=== PATIENT | female | born 1930 | race Caucasian/White ===

== ENCOUNTER 2017-11-11 09:53 | Observation (INO) | payer MEDICARE, BC ==
[~2017-11-11] VITALS: Ht 172.7 cm; Wt 72.0 kg
[~2017-11-11 09:53] MED LIST: ASPIRIN LOW DOS81 M2 PO; ATENOLOL25 MG PO; BETIMOL0.25 % OU; CALCIUM + D600 MG PO; CALCIUM D- OR; CENTRUM PO; CO Q 10100 MG PO; DORZOL/TIMOL1 ML OU; DORZOLAMIDE2 % OU; GLUCO/CHOND2 PO; GLUCOSAMINE500 M1 PO; HYDROCHLOROT25 MG PO; HYDROXYZ HCL25 MG PO; LIPITOR40 MG PO; LOSARTAN POTASS25 MG PO; MAGNESIUM-OX400 MG PO; METOPROL TAR25 MG PO; NAPROSYN500 MG PO; NITROSTAT0.4 MG SL; OMEGA 31000 MG PO; OMEGA-3 FISH1000 MG PO; PEPCID20 MG PO; PLAVIX75 MG PO; POT CHLORIDE 10% PO; PREDNISONE10 MG PO; PROTONIX40 M2 OR; PROTONIX40 M2 PO; TRANSDERM-N0.2 MG/HR TD; TRANSDERM-NITR0.4 MG TD; ULTRAM50 MG OR; [UNRECOGNIZED DRUG - CODE] PO
[2017-11-11 10:33] LABS: HEMATOCRIT 38.9 % (37.0-47.0); HEMOGLOBIN 12.9 g/dl (12.0-16.0); IMMATURE GRANULOCYTES 0.6 % (0.0-1.0); MEAN CELL VOLUME 86.1 fL CALC (80.0-100.0); MEAN CORPUSCULAR HGB 28.5 pG CALC (26.0-32.0); MEAN CORPUSCULAR HGB CONC 33.2 g/L CALC (32.0-36.0); NEUT# 2.89 thou/uL (2.00-7.15); RED BLOOD COUNT 4.52 mill/uL (4.20-5.60); RED CELL DISTRI WIDTH 13.4 % (11.5-15.5)
[2017-11-11 10:56] LABS: ALBUMIN 4.1 g/dL (3.2-5.0); ALKALINE PHOSPHATASE 86 u/l (38-126); ANION GAP 16 (6-22 (CALC)); BILIRUBIN, TOTAL 0.9 mg/dL (0.0-1.4); BUN 27 mg/dL (8-23); BUN/CREATININE RATIO 20 (12-20 (CALC)); CARBON DIOXIDE 29 mmol/l (22-30); CHLORIDE 101 mmol/l (95-108); CREATININE 1.3 mg/dL (0.5-1.0); GFR 39 ML/MIN (>=60 (CALC)); GFR FOR AFR.AMER. 47 ML/MIN (>=60 (CALC)); POTASSIUM 4.1 mmol/l (3.5-5.1); SGOT/AST 31 u/l (9-36); SGPT/ALT 30 u/l (11-66); SODIUM 142 mmol/l (137-146); TOTAL PROTEIN 6.9 g/dL (6.3-8.2)
[2017-11-11] MEDS ORDERED: BENAZEPRIL10 MG PO (12:06)
[2017-11-11] MEDS ORDERED: CARVEDILOL6.25 MG PO (12:06)
[2017-11-11] MEDS ORDERED: FUROSEMIDE40 MG PO (12:07)
[2017-11-11] MEDS ORDERED: MICRO-K10 ME1 PO (12:07)
[2017-11-11] MEDS ORDERED: PROBIOTI2 PO (12:08)
[2017-11-11] MEDS ORDERED: ECONOPRED PL1 % OS (12:09)
[2017-11-11 14:50] VITALS: BP 155/73
[2017-11-11 14:59] LABS: URINE BILIRUBIN - DIPSTICK NEGATIVE (NEGATIVE); URINE BLOOD DIPSTICK NEGATIVE (NEGATIVE); URINE COLOR YELLOW; URINE GLUCOSE - DIPSTICK NEGATIVE (NEGATIVE); URINE KETONE NEGATIVE (NEGATIVE); URINE LEUK ESTERASE NEGATIVE (NEGATIVE); URINE NITRITE - DIPSTICK NEGATIVE (Negative); URINE PH 6.5 (4.5-8.0); URINE PROTEIN - DIPSTICK NEGATIVE (NEG-TRACE); URINE UROBILINOGEN - DIPSTICK 0.2 E.U./dL (0.2)
[2017-11-11 15:06] LABS: URINE CLARITY CLEAR
[2017-11-11] MEDS ORDERED: MULTI VIT PO (15:21)
[2017-11-11] MEDS ORDERED: B121000 MCG PO (15:21)
[2017-11-11] MEDS ORDERED: DORZOLAMIDE2 % OD (15:30)
[2017-11-11 19:30] VITALS: BP 113/57
[2017-11-12] VITALS (7 sets, daily range): BP systolic 105–137; BP diastolic 57–66
[2017-11-12 05:44] LABS: HEMATOCRIT 36.1 % (37.0-47.0); HEMOGLOBIN 12.1 g/dl (12.0-16.0); MEAN CELL VOLUME 85.7 fL CALC (80.0-100.0); MEAN CORPUSCULAR HGB 28.7 pG CALC (26.0-32.0); MEAN CORPUSCULAR HGB CONC 33.5 g/L CALC (32.0-36.0); RED BLOOD COUNT 4.21 mill/uL (4.20-5.60); RED CELL DISTRI WIDTH 13.5 % (11.5-15.5)
[2017-11-12 05:57] LABS: CHOLESTEROL HDL RATIO 2.9 (<4.4 (CALC)); CREATININE 1.2 mg/dL (0.5-1.0); POTASSIUM 4.2 mmol/l (3.5-5.1)
[2017-11-13 05:05] VITALS: BP 150/73
[2017-11-13 06:58] LABS: HEMATOCRIT 36.2 % (37.0-47.0); IMMATURE GRANULOCYTES 0.5 % (0.0-1.0); MEAN CELL VOLUME 85.4 fL CALC (80.0-100.0); MEAN CORPUSCULAR HGB 28.3 pG CALC (26.0-32.0); MEAN CORPUSCULAR HGB CONC 33.1 g/L CALC (32.0-36.0); NEUT# 1.98 thou/uL (2.00-7.15); RED BLOOD COUNT 4.24 mill/uL (4.20-5.60); RED CELL DISTRI WIDTH 13.5 % (11.5-15.5)
[2017-11-13 07:13] LABS: CREATININE 1.1 mg/dL (0.5-1.0); POTASSIUM 4.2 mmol/l (3.5-5.1)
[2017-11-13 08:03] VITALS: BP 135/73
[2017-11-13 11:27] VITALS: BP 112/50
[2017-11-13 15:24] VITALS: BP 141/77
== END 2017-11-13 16:10 | disposition home or self-care (01) ==
LOC: ED 09:53 → ED-I 13:21 → ED 13:32 → MS2 13:33
PROVIDERS: Emergency Medicine; Nurse Practitioner Family; ADMIT Internal Medicine; ATTEND Internal Medicine
DX: T44.7X1A Poisoning by beta-adrenoreceptor antagonists, accidental (unintentional), initial encounter (principal); R00.1 Bradycardia, unspecified; I12.9 Hypertensive chronic kidney disease with stage 1 through stage 4 chronic kidney disease, or unspecified chronic kidney disease; N18.3 Chronic kidney disease, stage 3 (moderate); K21.9 Gastro-esophageal reflux disease without esophagitis; J44.9 Chronic obstructive pulmonary disease, unspecified; H40.9 Unspecified glaucoma; M19.90 Unspecified osteoarthritis, unspecified site; R10.13 Epigastric pain; K59.09 Other constipation; R19.7 Diarrhea, unspecified; M19.042 Primary osteoarthritis, left hand; M19.041 Primary osteoarthritis, right hand; I08.1 Rheumatic disorders of both mitral and tricuspid valves; I27.20 Pulmonary hypertension, unspecified

== ENCOUNTER 2018-04-03 07:32 | Day surgery (SDC) | payer MEDICARE, BC ==
[~2018-04-03 07:32] MED LIST changes: +B121000 MCG PO; +BENAZEPRIL HCL20 MG PO; +BENAZEPRIL10 MG PO; +BYSTOLIC2.5 MG PO; +CALCIUM 600+D3 PO; +CALCIUM1250 MG PO; +CARVEDILOL6.25 MG PO; +DORZOLAMIDE2 % OD; +ECONOPRED PL1 % OS; +FUROSEMIDE40 MG PO; +MAGNESIUM400 MG PO; +MICRO-K10 ME1 PO; +MULTI VIT PO; +PROBIOTI2 PO
[2018-04-03 10:16] VITALS: BP 179/77
== END 2018-04-03 10:41 | disposition home or self-care (01) ==
LOC: ENDO 07:32
PROVIDERS: ATTEND Surgery
PROC: 0DJD8ZZ Inspection of Lower Intestinal Tract, Via Natural or Artificial Opening Endoscopic (ICD-10-PCS; principal; 2018-04-03)
DX: R19.7 Diarrhea, unspecified (principal); K59.00 Constipation, unspecified; K64.4 Residual hemorrhoidal skin tags; Q43.8 Other specified congenital malformations of intestine; K57.30 Diverticulosis of large intestine without perforation or abscess without bleeding; K64.8 Other hemorrhoids; N81.6 Rectocele; E04.1 Nontoxic single thyroid nodule; I10 Essential (primary) hypertension; M19.90 Unspecified osteoarthritis, unspecified site

== ENCOUNTER 2018-08-26 17:16 | Emergency (ER) | payer MEDICARE, BC ==
[~2018-08-26] VITALS: Ht 172.7 cm; Wt 68.0 kg
[2018-08-26] MEDS ORDERED: LEVOTHYROXIN125 MCG PO (17:30)
[2018-08-26 19:25] VITALS: BP 165/77
== END 2018-08-26 19:25 | disposition home or self-care (01) ==
LOC: ED 17:16
DX: S90.02XA Contusion of left ankle, initial encounter (principal); S80.02XA Contusion of left knee, initial encounter; S70.02XA Contusion of left hip, initial encounter; S20.212A Contusion of left front wall of thorax, initial encounter; I10 Essential (primary) hypertension; W10.9XXA Fall (on) (from) unspecified stairs and steps, initial encounter; Y92.009 Unspecified place in unspecified non-institutional (private) residence as the place of occurrence of the external cause; Y99.9 Unspecified external cause status

== ENCOUNTER → 2018-11-15 | Outpatient (REF) | payer MEDICARE, BC ==
[~2018-11-15] MED LIST changes: +LEVOTHYROXIN125 MCG PO
[2018-11-15 09:27] LABS: HEMATOCRIT 38.8 % (37.0-47.0); HEMOGLOBIN 12.7 g/dl (12.0-16.0); IMMATURE GRANULOCYTES 0.5 % (0.0-5.0); MEAN CORPUSCULAR HGB 28.5 pG CALC (26.0-32.0); MEAN CORPUSCULAR HGB CONC 32.7 g/L CALC (32.0-36.0); NEUT# 1.75 thou/uL (2.00-7.15); RED BLOOD COUNT 4.46 mill/uL (4.20-5.60); RED CELL DISTRI WIDTH 13.4 % (11.5-15.5)
[2018-11-15 09:43] LABS: ALKALINE PHOSPHATASE 103 u/l (38-126); ANION GAP 14 (6-22 (CALC)); BILIRUBIN, TOTAL 0.6 mg/dL (0.0-1.4); BUN 16 mg/dL (8-23); BUN/CREATININE RATIO 17 (12-20 (CALC)); CARBON DIOXIDE 29 mmol/l (22-30); CHLORIDE 99 mmol/l (95-108); CREATININE 0.9 mg/dL (0.5-1.0); GFR 59 ML/MIN (>=60 (CALC)); GFR FOR AFR.AMER. > 60 ML/MIN (>=60 (CALC)); POTASSIUM 4.7 mmol/l (3.5-5.1); SGOT/AST 36 u/l (9-36); SODIUM 137 mmol/l (137-146); TOTAL PROTEIN 6.9 g/dL (6.3-8.2)
== END | disposition home or self-care (01) ==
LOC: LAB 07:28
PROVIDERS: ATTEND Internal Medicine
DX: E03.9 Hypothyroidism, unspecified (principal); I10 Essential (primary) hypertension

== ENCOUNTER → 2018-11-25 | Outpatient (REF) | payer MEDICARE, BC | END | disposition home or self-care (01) | LOC: ULTRASND 08:22 | PROVIDERS: ATTEND Internal Medicine | DX: F10.11 Alcohol abuse, in remission (principal); R16.0 Hepatomegaly, not elsewhere classified ==

== ENCOUNTER 2019-12-27 | Emergency (ER) | payer MEDICARE, BC ==
[~2019-12-27] MED LIST changes: -ECONOPRED PL1 % OS; +PRED FORTE1 % OD
--- NOTE | 2019-12-29 08:24 | NUR ---
Covid Results (negative) called to Megan Jonas tire building supervisor Olga at [phone]. Advised to follow up with PCP and retuen to ED with any urgent needs. Advised that Covid prevention practices need to be continued.
== END 2019-12-27 11:12 ==
DX: S40.011A Contusion of right shoulder, initial encounter (principal); S70.01XA Contusion of right hip, initial encounter; I10 Essential (primary) hypertension; W01.0XXA Fall on same level from slipping, tripping and stumbling without subsequent striking against object, initial encounter; Y92.099 Unspecified place in other non-institutional residence as the place of occurrence of the external cause; Z20.828 Contact with and (suspected) exposure to other viral communicable diseases

== ENCOUNTER 2020-01-25 04:37 | Inpatient (IN) | payer MEDICARE, BC ==
[~2020-01-25] VITALS: Ht 175.3 cm; Wt 64.0 kg
[2020-01-25] MEDS ORDERED: DORZOLAMIDE HCL2 % OD (05:10)
[2020-01-25] MEDS ORDERED: DOCUSATE SOD100 M2 PO (05:11)
[2020-01-25] MEDS ORDERED: EYE DROP3 OU (05:12)
[2020-01-25] MEDS ORDERED: WOMEN'S ONE PO (05:13)
--- NOTE | 2020-01-25 06:30 | NUR ---
PT C/O DYSURIA. REQUESTED CATHETER. TRIED TO CATH WITH #16 MÁRQUEZ AND THEN A MINI CATH WITHOUT SUCCESS. UNABLE TO LOCATE THE URETHRA. PT PLACED GENTLY ON BEDPAN... HER TAILBONE HURTS. VOIDED 150 CC OF CLEAR MADHURI URINE. SAMPLE SENT. IV STARTED. LABS DRAWN. COVID SWAB OBTAINED PT COMES FROM THE [facility] WHERE THERE ARE KNOWN EXPOSURES. PT GIVEN TORADOL IVP. PT REPOSITIONED AND WARM BLANKETS AND HOSP SOCKS APPLIED. PT IS A/O TELLEZ. GRASP EQUAL AND STRONG. NAD.
--- NOTE | 2020-01-25 06:54 | NUR ---
REPORT TO DAYAMI CRAIG. PT RESTING.
--- NOTE | 2020-01-25 07:03 | NUR ---
REPORT FROM DAYAMI MARTINEZ; PT RESTING ON STRETCHER; NO S/S OF DISTRESS NOTED; PT STATES PAIN IS MUCH BETTER AT THIS TIME; MONITORING DEVICES IN PLACE; VSS; CALL LIGHT WITHIN REACH; WILL CONTINNUE TO MONITOR
[2020-01-25 07:12] LABS: HEMATOCRIT 38.1 % (37.0-47.0); HEMOGLOBIN 12.9 g/dl (12.0-16.0); IMMATURE GRANULOCYTES 0.7 % (0.0-5.0); MEAN CELL VOLUME 81.2 fL CALC (80.0-100.0); MEAN CORPUSCULAR HGB 27.5 pG CALC (26.0-32.0); MEAN CORPUSCULAR HGB CONC 33.9 g/dL CAL (32.0-36.0); NEUT# 3.15 thou/uL (2.00-7.15); RED BLOOD COUNT 4.69 mill/uL (4.20-5.60); RED CELL DISTRI WIDTH 13.2 % (11.5-15.5); URINE BILIRUBIN - DIPSTICK NEGATIVE (NEGATIVE); URINE BLOOD DIPSTICK TRACE-INTACT (NEGATIVE); URINE COLOR YELLOW; URINE GLUCOSE - DIPSTICK NEGATIVE (NEGATIVE); URINE KETONE NEGATIVE (NEGATIVE); URINE LEUK ESTERASE NEGATIVE (NEGATIVE); URINE NITRITE - DIPSTICK NEGATIVE (Negative); URINE PROTEIN - DIPSTICK NEGATIVE (NEG-TRACE); URINE SPECIFIC GRAVITY <=1.005; URINE UROBILINOGEN - DIPSTICK 0.2 E.U./dL (0.2)
[2020-01-25 07:16] LABS: ALBUMIN 3.8 g/dL (3.2-5.0); ALKALINE PHOSPHATASE 184 u/l (38-126); ANION GAP 11 (6-22 (CALC)); BILIRUBIN, TOTAL 1.3 mg/dL (0.0-1.4); BUN 9 mg/dL (8-23); BUN/CREATININE RATIO 12 (12-20 (CALC)); CARBON DIOXIDE 27 mmol/l (22-30); CHLORIDE 93 mmol/l (95-108); CREATININE 0.7 mg/dL (0.5-1.0); GFR > 60 ML/MIN (>=60 (CALC)); GFR FOR AFR.AMER. > 60 ML/MIN (>=60 (CALC)); POTASSIUM 3.7 mmol/l (3.5-5.1); SGOT/AST 35 u/l (9-36); SODIUM 127 mmol/l (137-146); TOTAL PROTEIN 7.2 g/dL (6.3-8.2)
--- NOTE | 2020-01-25 07:45 | NUR ---
DR MERRILL AT BEDSIDE TO DISCUSS POC AND FINDINGS; PT VERBALIZES UNDERSTANDING; MONITORING DEVICES IN PLACE; PT DENIES ANY NEEDS AT THIS TIME
--- NOTE | 2020-01-25 08:37 | NUR ---
PT RESTING ON STRETCHER; ADVISED OF POC AND CONTINUED WAIT TIME; ATTEMPTED TO CALL REPORT; WILL CONTINUE TO MONITOR
--- NOTE | 2020-01-25 09:00 | NUR ---
PT PLACED ON BEDPAN. VOIDED 600ML CLEAR YELLOW URINE
--- NOTE | 2020-01-25 09:35 | NUR ---
Admission Note Report Given to: DORIE LOPEZ Transported by: Wheelchair X Stretcher Transported with: X Nurse Transporter X Patent IV O2 X Geography Faculty Member Location: ICU X MS2
--- NOTE | 2020-01-25 09:45 | NUR ---
PT ARRIVED VIA STRETCHER ACCOMPANIED BY STAFF. IV SITE IS FREE FROM REDNESS OR EDEMA.
--- NOTE | 2020-01-25 09:50 | NUR ---
ASSESSMENT IS COMPLETED: IV SITE IS FREE FROM REDNESS OR EDEMA. HR IS REG, PULSES ARE STRONG X4, ABD IS SOFT WITH ACTIVE BS. BREATH SOUNDS ARE CLEAR,BILATERALLY. TELE MONITOR IN PLACE. CONTINUE TO HAVE PAIN WHEN SHE MOVES OR SHIFTS ON HER TAIL BONE. CONTINUE TO OSBERVE AND MONITOR.
[2020-01-25 10:00] VITALS: BP 188/84
--- NOTE | 2020-01-25 11:59 | NUR ---
SPOKE WITH ABEL AT THE [facility] RE: EYE DROPS (MAPHAZOLIN) PT TAKES OWN MEDICATIONS IT WAS NOT IN HER ROOM.
--- NOTE | 2020-01-25 13:00 | NUR ---
PT IS RELAXING IN BED WITH NO DISTRESS NOTED. IV SITE IS FREE FROM REDNESS OR EDEMA.
[2020-01-25 15:51] VITALS: BP 139/67
--- NOTE | 2020-01-25 16:30 | NUR ---
PT IS RELAXING IN BED WITH NO DISTRESS NOTED. IV SITE IS FREE FROM REDNESS OR EDEMA.
[2020-01-25 19:13] VITALS: BP 135/64
--- NOTE | 2020-01-25 19:42 | NUR ---
REPORT RECEIVED FROM DORIE LOPEZ. PT RESTING IN BED ALERT AND ORIETNED. RESPIRATIONS EVEN AND UNLABORED ON RA. PEDAL PULSES STRONG. ADJUSTED THE HEAD OF THE BED PER PT REQUEST, PT STATES "I HAVE NO PAIN AT THE MOMENT LONG IM NOT MOVING AROUND." TELE IN PLACE. PLAN OF CARE DISCUSSED WITH PT. CALL MEREDITH WITHIN REACH. WILL CONTINUE TO MONITOR.
[2020-01-26 00:05] VITALS: BP 142/65
--- NOTE | 2020-01-26 00:45 | NUR ---
PT RESTING IN BED, NO S/S OF DISTRESS AT THIS TIME. SAFETY PRECAUTIONS IN PLACE. WILL CONTINUE TO MONITOR
--- NOTE | 2020-01-26 04:17 | NUR ---
PT RESTING IN BED, NO S/S OF DISTRESS AT THIS TIME. SAFETY PRECAUTIONS IN PLACE. WILL CONTINUE TO MONITOR.
[2020-01-26 04:20] VITALS: BP 159/71
[2020-01-26 06:00] LABS: HEMATOCRIT 37.5 % (37.0-47.0); HEMOGLOBIN 12.5 g/dl (12.0-16.0); MEAN CELL VOLUME 82.8 fL CALC (80.0-100.0); MEAN CORPUSCULAR HGB 27.6 pG CALC (26.0-32.0); MEAN CORPUSCULAR HGB CONC 33.3 g/dL CAL (32.0-36.0); RED BLOOD COUNT 4.53 mill/uL (4.20-5.60); RED CELL DISTRI WIDTH 13.3 % (11.5-15.5)
[2020-01-26 06:29] LABS: ANION GAP 10 (6-22 (CALC)); BUN 17 mg/dL (8-23); BUN/CREATININE RATIO 25 (12-20 (CALC)); CARBON DIOXIDE 22 mmol/l (22-30); CHLORIDE 100 mmol/l (95-108); CREATININE 0.7 mg/dL (0.5-1.0); GFR > 60 ML/MIN (>=60 (CALC)); GFR FOR AFR.AMER. > 60 ML/MIN (>=60 (CALC)); SODIUM 128 mmol/l (137-146)
[2020-01-26 06:59] LABS: TSH, 3RD GENERATION 4.04 uIU/mL (0.47 - 4.68)
--- NOTE | 2020-01-26 07:25 | NUR ---
CHANGE OF SHIFT REPORT RECEIVED FROM DAYAMI CROSS. PT DENIES PAIN. 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 PT REQUESTING MÁRQUEZ OR PROCEDURE TO STRETCH HER URETHRA. FRICKERTRON CHECKER NOTIFIED PT THAT FRICKERTRON CHECKER WILL NOTIFY DR NOLAN AND MARIO JUAN.
--- NOTE | 2020-01-26 08:30 | NUR ---
MARIO JUAN NOTIFIED OF PT'S REQUEST FOR MÁRQUEZ AND REQUEST FOR HER URETHRA TO BE STRETCHED. NO NEW ORDERS AT THIS TIME
[2020-01-26 08:35] VITALS: BP 148/70
--- NOTE | 2020-01-26 11:08 | NUR ---
PURE WICK PLACED ON PT'S FREIDA AREA. PT HAD URINE OUTPUT OF 520ML CLEAR YELLOW URINE. PT HAS 582ML OF URINE LEFT PER BLADDER SCAN. MARIO JUAN NOTIFIED
[2020-01-26 11:50] VITALS: BP 174/85
--- NOTE | 2020-01-26 11:55 | NUR ---
APRESOLINE 10MG VIA IV ADMINISTERED FOR BP OF 174/85. INTERLOCKER WILL CONTINUE TO MONITOR
--- NOTE | 2020-01-26 13:37 | NUR ---
Called consultation in for spoke to Maribel gave her all Pt.information and call back number
--- NOTE | 2020-01-26 13:53 | NUR ---
ORDER RECEIVED FROM DR MOBLEY,UROLOGIST TO INSERT MÁRQUEZ.
--- NOTE | 2020-01-26 14:27 | NUR ---
PT note Patient is seen for evaluation. She is severely limited due to onset of pain with movement. She is in supine but is max assist for bed mobility and transfers. She has some signs that there coupld be some involvement of her low back after a ecent fall. 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
--- NOTE | 2020-01-26 15:52 | NUR ---
PTNOTIFIED THAT NEW ORDER TO PUT IN MÁRQUEZ FOR INCOMPLETE EMPTYING AND DISTENDED BLADDER. MÁRQUEZ 16FR INSERTED. PT TOLERATED PROCEDURE WELL. MÁRQUEZ ANCHORED TO RIGHT THIGH. PT PUT OUT 1000 ML OF CLEAR, YELLOW URINE. ENGINEERING CLERK WILL CONTINUE TO MONITOR
[2020-01-26 18:52] VITALS: BP 147/82
--- NOTE | 2020-01-26 19:00 | NUR ---
RECEIVED REPORT FROM NURSE SPRINGER PATIENT RESTING IN BED, TALKING ON THE PHONE EVEN UNLABORED BREATHING, NO DISCOMFORTS NOTED AT THIS TIME, CALL LIGHT AT REACH.
--- NOTE | 2020-01-26 21:00 | NUR ---
PATIENT ALERT ORIENTED ABLE TO MAKE NEEDS KNONW, WITH ONGOING IV OF NS @ 50CC/HR INFUSING WELL ON RFA, REMAINS ON TELE SR WITH 1ST AVB, LBM 5/ OFFERED MOM REFUSED STATED WILL TAKE IN IN MORNING, WITH INDWELLING MÁRQUEZ CATHETER DRAINING YELLOW CLEAR URINE, CALL LIGHT AT REACH.
[2020-01-27] VITALS (8 sets, daily range): BP systolic 127–173; BP diastolic 63–86
--- NOTE | 2020-01-27 01:05 | NUR ---
BP 173/80, ASYMPTOMATIC, DENIES PAIN OR DISCOMFORTS PRN APRESOLINE GIVEN WILL RECHECK BP
--- NOTE | 2020-01-27 05:13 | NUR ---
PATIENT APPEARS TO BE SLEEPING WITH EYES CLOSED, WITH EVEN UNLABORED BREATHING CALL LIGHT AT REACH.
--- NOTE | 2020-01-27 07:35 | NUR ---
CHANGE OF SHIFT REPORT RECEIVED FROM DORIE LOPEZ. PT LYING IN SUPINE POSITION WITH HOB AT 15 DEGREE. PT DENIES PAIN OR DISCOMFORT. RUG SIZER WILL CONTINUE TO MONITOR
--- NOTE | 2020-01-27 12:00 | NUR ---
PT'S COVID-19 NOSE SWAB RESULT IS NEGATIVE. PT TRANSFERRED TO [facility] [[email or web address]. PT DENIES PAIN OR DISCOMFORT, URINE DRAINING INTO BAG. CALL LIGHT WITHIN EASY REACH BED IN LOWEST POSITION, KETTLE WORKER WILL CONTINUE TO MONITOR
--- NOTE | 2020-01-27 16:05 | NUR ---
PT IS STABLE RESTING COMFORTABLY. PT DENIES PAIN OR DISCOMFORT. ALLERGY NURSE WILL CONTINUE TO MONITOR.
[2020-01-27 19:47] LABS: ANION GAP 11 (6-22 (CALC)); BUN 12 mg/dL (8-23); BUN/CREATININE RATIO 17 (12-20 (CALC)); CARBON DIOXIDE 23 mmol/l (22-30); CHLORIDE 96 mmol/l (95-108); CREATININE 0.7 mg/dL (0.5-1.0); GFR > 60 ML/MIN (>=60 (CALC)); GFR FOR AFR.AMER. > 60 ML/MIN (>=60 (CALC)); POTASSIUM 3.9 mmol/l (3.5-5.1); SODIUM 126 mmol/l (137-146)
--- NOTE | 2020-01-27 20:20 | NUR ---
PT AWAKE RESTING IN BED. ATE 50% OF HER DINNER. PT IS ALERT AND ORIENTED X3. RESP EVEN AND UNLABORED. O2 SAT ON R/A 95%. SKIN IS INTACT. LUNGS CLEAR BILAT. ABD SOFT AND NONDISTENDED WITH BOWEL SOUNDS PRESENT. NO ABD PAIN ON PALPATION. MÁRQUEZ IS PATENT DRAINING CLEAR YELLOW URINE. NO LOWER EXT EDEMA NOTED. PEDAL PULSES PALPATED BILAT. BILAT HEEL PROTECTORS ON. IV SITE PATENT IN R.T A.C. NO REDNESS,SWELLING OR TENDERNESS AT SITE. IVF NSS AT 50CC/HR. PT ASSISTED WITH REPOSITIONING. PT DENIES ANY DISCOMFORT AT THIS TIME. PT STATES SHE ONLY HAS DISCOMFORT IN HER LOWER BACK WHEN SHE MOVES. BED ALARM IS ON FOR PTS SAFETY. FREQUENT ROUNDS MADE. CALL MEREDITH WITHIN REACH.
--- NOTE | 2020-01-27 21:25 | NUR ---
CALL PLACED TO DR CATHERINE AND INFORMED OF THIS EVENINGS NA OR 126 AND THAT ON 01/26/20 NA WAS 128. AWARE OF PTS ASSESSMENT AND PT ON IVF NSS AT 50CC/HR. NO NEW ORDERS RECEIVED AT THIS TIME.
--- NOTE | 2020-01-28 00:11 | NUR ---
PT RESTING IN BED WITH EYES CLOSED. RESP EVEN AND UNLABORED. NO DISTRESS NOTED. TELE INTACT. MÁRQUEZ IS PATENT. IV SITE PATENT. FREQUENT ROUNDS MADE. CALL MEREDITH WITHIN REACH.
[2020-01-28 03:52] VITALS: BP 162/84
--- NOTE | 2020-01-28 04:22 | NUR ---
PT AWAKE RESTING IN BED. PT HAD A SMALL SOFT PASTY BROWN FORMED STOOL. FREIDA CARE GIVEN. PT TURNED AND REPOSITIONED FOR COMFORT. IV SITE PATENT. OFFERS NO COMPLAINTS. TELE SR. FREQUENT ROUNDS MADE. CALL MEREDITH WITHIN REACH.
--- NOTE | 2020-01-28 04:55 | NUR ---
PT MEDICATED WITH TYLENOL 650MG P.O FOR COCCYX PAIN DUE TO HX OF A FALL. PT REPOSTIONED FOR COMFORT. IV SITE PATENT. CALL MEREDITH WITHIN REACH.
[2020-01-28 05:58] LABS: HEMATOCRIT 34.7 % (37.0-47.0); HEMOGLOBIN 11.5 g/dl (12.0-16.0); IMMATURE GRANULOCYTES 0.7 % (0.0-5.0); MEAN CELL VOLUME 82.2 fL CALC (80.0-100.0); MEAN CORPUSCULAR HGB 27.3 pG CALC (26.0-32.0); MEAN CORPUSCULAR HGB CONC 33.1 g/dL CAL (32.0-36.0); NEUT# 1.69 thou/uL (2.00-7.15); RED BLOOD COUNT 4.22 mill/uL (4.20-5.60); RED CELL DISTRI WIDTH 13.4 % (11.5-15.5)
[2020-01-28 06:11] LABS: ANION GAP 9 (6-22 (CALC)); BUN 12 mg/dL (8-23); BUN/CREATININE RATIO 18 (12-20 (CALC)); CARBON DIOXIDE 22 mmol/l (22-30); CHLORIDE 98 mmol/l (95-108); CREATININE 0.7 mg/dL (0.5-1.0); GFR > 60 ML/MIN (>=60 (CALC)); GFR FOR AFR.AMER. > 60 ML/MIN (>=60 (CALC)); POTASSIUM 3.9 mmol/l (3.5-5.1); SODIUM 125 mmol/l (137-146)
--- NOTE | 2020-01-28 07:00 | NUR ---
SHIFT CHANGE REPORT, PT AWAKE ALERT AND ORIENTED RESTING IN BED, IVF INFUSING, TELE MONITOR IN PLACE, MÁRQUEZ CATHETER IN PLACE WITH MADHURI URINE, C/O BACK PAIN, REPOSITIONED IN BED, CALL MEREDITH IN REACH.
[2020-01-28 09:11] VITALS: BP 143/70
[2020-01-28 11:00] VITALS: BP 130/61
--- NOTE | 2020-01-28 12:00 | NUR ---
MEDICAL TEAM ROUNDED AND DISCUSSED PLAN OF CARE WITH PT WHO STATED UNDERSTANDING, ALL NEEDS ADDRESSED.
--- NOTE | 2020-01-28 13:56 | NUR ---
01/27/20 Patient OOB to stand with mod assist of 1. She is able to ambulate about 10 feet with FWW and mod assist of 1. Pain is greatly improved once she is on her feet. She remains weak but without focal weakness. She has signs of low back dysfunction Am Pac improved to 13 but she would still benefit from ECF
--- NOTE | 2020-01-28 15:34 | NUR ---
RESTING IN BED IN RIGHT SIDE-LYING POSITION AFTER PHYSICAL THERAPIST TREATED, PT AMBULATED IN ROOM WITH THERAPIST AND TOLERATED WELL.
[2020-01-28 16:00] VITALS: BP 153/72
--- NOTE | 2020-01-28 16:19 | NUR ---
FAMILY FRIEND ANALIA FERGUSON CALLED TO INQUIRE ABOUT PT, PT CONSENTED TO FURNISH INFORMATION TO THIS PERSON HER BIOLOGICAL FAMILY/RELATIVES ARE ALL OUT OF STATE AND ANALIA IS HER CLOSEST CONTACT AT THIS TIME, SHE DOES HAVE A POA WHO LIVES IN ANOTHER STATE.
[2020-01-28 19:00] VITALS: BP 150/63
--- NOTE | 2020-01-28 19:17 | NUR ---
REPORT RECEIVED FROM DAYAMI ROBB. PT RESTING IN BED, ALERT AND ORIENTED. RESPIRATIONS EVEN AND UNLABORED ON RA, LUNGS SOUND CLEAR. PEDAL PULSES STRONG PT DENIES ANY PAIN OR DISCOMFORT AT THIS TIME. SAFETY PRECAUTIONS IN PLACE. WILL CONTINUE TO MONITOR.
[2020-01-29] VITALS (7 sets, daily range): BP systolic 124–156; BP diastolic 63–77
--- NOTE | 2020-01-29 02:35 | NUR ---
PT RESTING IN BED WITH EYES CLOSED. RESPIRATIONS EVEN AND UNLABORED ON RA. NO S/S OF DISTRESS AT THIS TIME. WILL CONTINUE TO MONITOR.
--- NOTE | 2020-01-29 04:20 | NUR ---
PT RESTING IN BED. RESPIRATIONS EVEN AND UNLABORED ON RA. NO S/S OF DISTRESS AT THIS TIME. WILL CONTINUE TO MONITOR.
[2020-01-29 07:11] LABS: ANION GAP 8 (6-22 (CALC)); BUN 12 mg/dL (8-23); BUN/CREATININE RATIO 19 (12-20 (CALC)); CARBON DIOXIDE 27 mmol/l (22-30); CHLORIDE 97 mmol/l (95-108); CREATININE 0.7 mg/dL (0.5-1.0); GFR > 60 ML/MIN (>=60 (CALC)); GFR FOR AFR.AMER. > 60 ML/MIN (>=60 (CALC)); POTASSIUM 3.8 mmol/l (3.5-5.1); SODIUM 128 mmol/l (137-146)
--- NOTE | 2020-01-29 07:29 | NUR ---
PT LAYING IN BED. A&O X3. NO DISTRESS NOTED. PT C/O OF MINOR SACARL PAIN. MÁRQUEZ CATHETER DRAINING VIA GRAVITY WITH CLEAR YELLOW URINE NOTED. PILLOW PLACED BEHIND PT TO DECREASE THE AMOUNT OF PRESSURE. PT EXPRESSED SOME RELIEF. NO OTHER NEEDS AT THIS TIME. ASSESSMENT COMPLETED. DISCUSSED POC. CALL LIGHT IN REACH. CONTINUE TO MONITOR.
--- NOTE | 2020-01-29 11:43 | NUR ---
PT C/O OF PAIN IN COCCYX. TYLENOL GIVEN. WILL REASSESS.
--- NOTE | 2020-01-29 13:20 | NUR ---
01/28/20 PT note Patient OOB to stand with mod assist. She continues to have pain with transitional movement- especially sitting. She is able to stand and ambulates about 40 feet with vitals stable and FWW with mod assist of 1. Her Am Pac score is 14 and she would benefit from ECF. She is able to perform mini squats and standing marching x 20 reps each. She has pain throughout what appears to be a sciatic distribution bilaterally at 04/02- only with sitting
--- NOTE | 2020-01-29 15:47 | NUR ---
PT SLEEPING IN BED. NO DISTRESS NOTED. CONTINUE TO MONITOR.
--- NOTE | 2020-01-29 19:30 | NUR ---
PT. PULLED UP IN BED AND ASSISTED WITH REPOSITIONING FOR COMFORT. ASSESSMENT COMPLETED. MÁRQUEZ CATHETER IN PLACE AND DRAINING AT GRAVITY LEVEL. UPDATED PT. ON POC AND VERBALIZES UNDERSTANDING. DENIES NEEDS/PAIN. PO FLUIDS OFFERED. ENCOURAGED TO CALL FOR ANY NEEDS. CALL LIGHT IS IN REACH. WILL CONTINUE TO MONITOR.
--- NOTE | 2020-01-29 23:25 | NUR ---
RESTING IN BED WITH NO DISTRESS NOTED; VSS. HELPED PT. TO ADJUST IN BED. VOICES NO CONCERNS. CALL LIGHT IS IN REACH.
[2020-01-30 00:50] VITALS: BP 152/80
--- NOTE | 2020-01-30 02:03 | NUR ---
RESTING IN BED WITH EYES CLOSED; NO DISTRESS NOTED; CALL LIGHT IS IN REACH.
[2020-01-30 04:18] VITALS: BP 155/89
--- NOTE | 2020-01-30 05:15 | NUR ---
NEW IV STARTED X1 ATTEMPT TO LFA; PT. TOLERATED WELL ALSO OBTAINED BLOOD DRAW WELL. OLD IV SITE REMOVED FROM RAC WITH CATHETER TIP INTACT. NEW IV TUBING HUNG. PT. DENIES NEEDS/PAIN. CALL LIGHT IS IN REACH.
--- NOTE | 2020-01-30 07:00 | NUR ---
SHIFT CHANGE REPORT, PT AWAKE ALERT AND ORIENTED RESTING IN BED, TELE MONITOR IN PLACE, MÁRQUEZ IN PLACE WITH CLEAR PALE URINE, NO CO DISCOMFORT AT THIS TIME. NIGHT NURSE REPORTED SHE GOT MESSAGE THAT DR MOBLEY WILL BE DOING PROCEDURE ON SUNDAY BUT HAD NO ORDERS, WILL CONTINUE TO INVESTIGATE THIS REPORT.
[2020-01-30 07:06] LABS: ANION GAP 10 (6-22 (CALC)); BUN 15 mg/dL (8-23); BUN/CREATININE RATIO 20 (12-20 (CALC)); CARBON DIOXIDE 25 mmol/l (22-30); CHLORIDE 97 mmol/l (95-108); CREATININE 0.8 mg/dL (0.5-1.0); GFR > 60 ML/MIN (>=60 (CALC)); GFR FOR AFR.AMER. > 60 ML/MIN (>=60 (CALC)); SODIUM 128 mmol/l (137-146)
[2020-01-30 07:41] VITALS: BP 173/86
--- NOTE | 2020-01-30 07:52 | NUR ---
I SPOKE TO DR MOBLEY VIA PHONE WHO INFORMED ME THE PROCEDURE IS FOR NEXT SUNDAY.
--- NOTE | 2020-01-30 09:39 | NUR ---
Pt seen this am for treatmen. She was with nursing resting in bed. She reported having so much trouble with pain. AROM ex performed to all extremities x 15-20 reps, isometric glut and quads x 20 reps. Pt attempted supine to sit with mod/max assist but unable to tolerate 90/90 sitting due to pain in LLE. Pt returned to supine and positioned appropriately. Call reyes and phone in reach. Nursing notified of pt c/o pain.
[2020-01-30 11:14] VITALS: BP 139/65
--- NOTE | 2020-01-30 12:00 | NUR ---
PTS KANIKA PONCE IN [place] RQUESTED TO TALK WITH DR NOLAN WHO CONTACTED HER VIA PHONE AND HAD ALL QUESTIONS ADDRESSED IN THE PRESENCE OF PATIENT. PLAN IS TO D/C TO [facility] TOMORROW.
[2020-01-30 15:14] VITALS: BP 147/64
[2020-01-30 19:10] VITALS: BP 153/78
--- NOTE | 2020-01-30 19:30 | NUR ---
PATIENT RESTING IN BED WITH EYES CLOSED-EASY TO AROUSE. ALERT AND ORIENTEDX3. PATIENT STATES MINIMAL RELIEF FROM TYLENOL SHE RECIEVED EARLIER. AWAITING NEW ORDER TO BE PROFILED ON EMAR-WILL MEDICATE WHEN ABLE. PATIENT WITH MÁRQUEZ CATH PATENT AND DRAINING YELLOW URINE,TELE MONITOR IN PLACE. IV SITE TO LEFT FOREARM WITH NS AT KVO RATE. SAFETY PRECAUTIONS REINFORCED. CALL LIGHT IN REACH. WILL CONT TO MONITOR.
--- NOTE | 2020-01-30 20:30 | NUR ---
PATIENT RESTING IN BED-MEDICATED FOR PAIN WITH LORTAB AND WITH FLEXERIL. SAFETY PRECAUTIONS REINFORCED. CALL LIGHT IN REACH. WILL CONT TO MONITOR.
--- NOTE | 2020-01-30 23:25 | NUR ---
PATIENT APPEARS SLEEPING WITH EYES CLOSED. RESPS ARE EVEN AND UNLABORED. MÁRQUEZ PATENT AND DRAINING YELLOW URINE. TELE MONITOR IN PLACE. IVF PATENT AND INFUSING VIA LEFT FOREARM AT KVO RATE. CALL LIGHT IN REACH. WILL CONT TO MONITOR.
[2020-01-31 00:01] VITALS: BP 139/71
[2020-01-31 04:00] VITALS: BP 152/80
--- NOTE | 2020-01-31 04:59 | NUR ---
PATIENT APPEARS SLEEPING AT THIS TIME WITH EYES CLOSED. RESPS ARE EVEN AND UN LABORED. TELE MONITOR IN PLACE. MÁRQUEZ PATENT AND DRAINING YELLOW URINE. CALL LIGHT IN REACH. WILL CONT TO MONITOR.
[2020-01-31 06:30] LABS: ANION GAP 9 (6-22 (CALC)); BUN 14 mg/dL (8-23); BUN/CREATININE RATIO 21 (12-20 (CALC)); CARBON DIOXIDE 28 mmol/l (22-30); CHLORIDE 94 mmol/l (95-108); CREATININE 0.7 mg/dL (0.5-1.0); GFR > 60 ML/MIN (>=60 (CALC)); GFR FOR AFR.AMER. > 60 ML/MIN (>=60 (CALC)); POTASSIUM 4.1 mmol/l (3.5-5.1); SODIUM 127 mmol/l (137-146)
[2020-01-31 07:45] VITALS: BP 163/79
--- NOTE | 2020-01-31 07:45 | NUR ---
ASSESSMENT IS COMPLETED: IV SITE IS FREE FROM REDNESS OR EDEMA. HR IS REG,PULSES ARE STRONG X4, ABD IS SOFT WITH ACTIVE BS. BREATH SOUNDS ARE CLEAR,BILATERAL. MÁRQUEZ DRAINING YELLOW URINE. TELE MONITOR IN PLACE,.CONTINUE TO OBSERVE AND MONITOR.
[2020-01-31] MEDS ORDERED: FUROSEMIDE20 MG PO (09:53)
[2020-01-31] MEDS ORDERED: LORTAB5 PO (09:53)
[2020-01-31] MEDS ORDERED: SOD CHLORIDE1 GM PO (09:53)
[2020-01-31 11:00] VITALS: BP 151/76
--- NOTE | 2020-01-31 12:15 | NUR ---
PT HAS BEEN [id number] IN BED WITH NO DISTRESS NOTED. IV SITE IS FREE FROM REDNESS OR EDEMA. CONTINUE TO OBSERVE AND MONITOR.
--- NOTE | 2020-01-31 15:02 | NUR ---
CHANGED MÁRQUEZ BAG TO A LEG BAG.
--- NOTE | 2020-01-31 16:00 | NUR ---
IV SITE DISCONTINUED CATHETER INTACT NO REDNESS OR EDEMA.
--- NOTE | 2020-01-31 16:54 | NUR ---
PT PICKED UP BY [facility] FOR TRANSPORT TO THE [facility]
--- NOTE | 2020-01-31 17:06 | NUR ---
SPOKE WITH SHARMILA STOCK AT [facility]. PT IS ON HER WAY AND FULL REPORT GIVEN.
--- NOTE | 2020-01-31 17:08 | NUR ---
ALL DISCHARGE INSTRUCTIONS IN PACKET FOR THE FACILITY. Discharge instructions given. Patient verbalizes understanding of same. Discharged in stable condition via Medical Transport to *Other with *Other. [facility]
== END 2020-01-31 16:52 | DRG 536 ==
LOC: ED 04:37 → ED-I 07:40 → ED 07:52 → MS2 07:53 → UNDODEPER 09:35 → MS2 01-26 10:35
PROVIDERS: Nurse Practitioner Family; ADMIT Internal Medicine; ATTEND Internal Medicine
PROC: 0T9B70Z Drainage of Bladder with Drainage Device, Via Natural or Artificial Opening (ICD-10-PCS; principal; 2020-01-26)
DX: S32.591A Other specified fracture of right pubis, initial encounter for closed fracture (principal); E87.1 Hypo-osmolality and hyponatremia; I12.9 Hypertensive chronic kidney disease with stage 1 through stage 4 chronic kidney disease, or unspecified chronic kidney disease; N18.9 Chronic kidney disease, unspecified; J44.9 Chronic obstructive pulmonary disease, unspecified; E03.9 Hypothyroidism, unspecified; N35.92 Unspecified urethral stricture, female; W19.XXXA Unspecified fall, initial encounter; Z20.828 Contact with and (suspected) exposure to other viral communicable diseases
CPT/HCPCS: G0378; J1650